=== PATIENT | male | born 1975 | race Caucasian/White ===

== ENCOUNTER 2022-11-02 13:38 | Emergency (ER) | payer SELFPAY ==
[2022-11-02 13:40] VITALS: BP 118/77; PULSE 74; RESP 18; TEMP 36.5; O2SAT 93
--- NOTE | 2022-11-02 13:43 | DI.CT_ITS ---
Exam(s) CT THORACIC LUMBAR SPINE WO EXAM: CT THORACIC LUMBAR SPINE WO CLINICAL HISTORY: fall from 6 feet. Axial loading force TECHNIQUE: Imaging Protocol: Axial computed tomography images with coronal and sagittal reformatted images were created and reviewed. CONTRAST MATERIAL: None COMPARISON: CR XR CHEST 1V IN DI DEPT from 11/02/2022 FINDINGS: THORACIC SPINAL COLUMN: No fractures nor listhesis. Schmorl's node invagination in superior endplate of T12 noted. LUMBOSACRAL SPINAL COLUMN: There is a mild compression fracture of L1 noted with approximately 10 per cent height loss. No significant retropulsed posterior cortex. Fracture lines do not extend to the level the pedicles. Transverse processes are intact. No facet malalignment at this level. No promi nent paraspinal hematoma. No adjacent pulmonary findings in the field of view of this study. IMPRESSION: Mild 10 percent compression fracture of L1 vertebral body without fracture line extension into the pe dicles and without retropulsed posterior cortex. No facet malalignment. No obvious acute compromise of the spinal canal at this level. No other fractures evident in the thoracic and lumbar spinal columns. No significant disc space narr owing. RADIATION DOSE DELIVERED: 1,077.48mGy.cm Total DLP DATA REPOSITORY: All CT scans at this facility are submitted to the National Radiology Data Registry (NRDR) Dose Index Registry (DIR) with the [employer] ([employer]). RADIATION OPTIMIZATION: All CT scans at this facility use at least one of these dose optimization te chniques: automated exposure control; mA and/or kV adjustment per patient size (includes targeted exa ms where dose is matched to clinical indication); or iterative reconstruction.
--- NOTE | 2022-11-02 13:45 | DI.RAD_ITS ---
Exam(s) XR CHEST 1V IN DI DEPT EXAM: XR CHEST 1V IN DI DEPT CLINICAL HISTORY: fall from scaffolding 6 feet. TECHNIQUE: 2D digital imaging was performed. COMPARISON: No exams were available for comparison FINDINGS: Single AP portable view. Heart size is upper normal. The mediastinum is not widened. Lungs are clear. No infiltrates nor obvious pleural effusions. IMPRESSION: No acute pulmonary findings on this single AP portable view of the chest. DATA REPOSITORY: RADIATION DOSE DELIVERED:
--- NOTE | 2022-11-02 13:47 | ED.GENADUL_ITS ---
Discharge Plan Disposition Patient Disposition: Home Condition: Improving Discharge Details Clinical Impression: Lumbar compression fracture Primary Care Provider: Unknown,Unknown ED Provider: Carl Payne Home Meds and New Rx's Prescriptions: New lidocaine [Lidoderm] 5 % adhesive patch,medicated 1 patch topical DAILY Qty: 15 0RF Rx Instructions: leave on most painful area for up to 12 hrs cyclobenzaprine 5 mg tablet 5 mg PO QHS PRNQty: 10 0RF Discharge Instructions Instructions: Vertebral Compression Fracture (ED) Additional Instructions: Please take medications as prescribed. You can also use acetaminophen and or ibuprofen for pain. Please return to the emergency department for any worsening symptoms Medical Decision Making 46-year-old male fall from 6 foot scaffolding at a construction site, landed on his buttocks no loss of conscious. Pain to lower back. No midline cervical tenderness however patient is tender in the lumbar region without step-off or crepitus. Patient is alert and oriented GCS 15, airway intact breathing clear bilaterally, hemodynamically stable warm well perfused, no signs of deformity to extremities. Consider contusion versus compression fracture of lumbar spine versus compression fracture of thoracic spine lower suspicion for rib fractures or pulmonary contusion. No evidence of altered mental status or head injury to suggest intracranial hemorrhage or skull fracture. Lower suspicion for cervical spine injury given mechanism and examination. Trial of analgesia anti- inflammatory, CT T-spine and L-spine 15: 51 patient resting comfortably neurologically intact. Evidence of compression fracture of L1. Given home care instructions and will be given muscle relaxant and Lidoderm patch. Given strict return precautions for any worsening symptoms HPI General Date/Time Provider Initiated Documentation: 11/02/22 13:43 . HPI Narrative: 46-year-old male fall from 6 foot scaffolding at construction site landed on his buttock, no head injury no loss of conscious no neck pain. Endorsing lower back discomfort. Related Data Home Medications Medication Instructions Recorded Confirmed cyclobenzaprine 5 mg tablet 5 mg PO QHS PRN #10 tabs 11/02/22 lidocaine 5 % topical patch 1 patch topical DAILY #15 ea 11/02/22 (Lidoderm) Previous Rx's Medication Instructions Recorded cyclobenzaprine 5 mg tablet 5 mg PO QHS PRN #10 tabs 11/02/22 lidocaine 5 % topical patch 1 patch topical DAILY #15 ea 11/02/22 (Lidoderm) Allergies Allergy/AdvReac Type Severity Reaction Status Date / Time honey Allergy Unverified 11/02/22 13:40 kiwi Allergy Unverified 11/02/22 13:40 General Stated Complaint: Trauma DOMENICA: 3 Review of Systems Narrative: Review of Systems Constitutional: negative Eyes: negative ENT: negative Cardiovascular: negative Respiratory: negative Gastrointestinal: negative : negative Musculoskeletal: Back pain Skin: negative Neurologic: negative Psych: negative PFSH All Active Problems (Updated 11/02/22 @ 15:52 by Carl Payne MD) Lumbar compression fracture (Acute) Social History Smoking/Tobacco Use Status: Never Smoking risk assessment performed?: Yes Alcohol Intake: current Alcohol Intake frequency: holidays/special occasions only Drug use: Never Substance use type: does not use Exam Narrative Exam Narrative: Physical Examination General: alert, awake, cooperative, uncomfortable appearing HEENT: normocephalic, atraumatic; PERRL, EOM intact, conjunctiva normal; no nasal discharge; moist mucous membranes, oral and pharyngeal mucosa normal, tolerating secretions Neck: supple, trachea midline; in c-collar no midline spinal tenderness Chest: normal to inspection Respiratory: normal respiratory effort, speaking in full sentences, clear to auscultation, no wheezing, rales or rhonchi Cardiac: regular rate, regular rhythm, S1S2 intact, no murmurs rubs or gallops GI: abdomen soft, non-tender, non-distended; no palpable mass or hepatosplenomegaly Back: Tenderness upon palpation of lumbar spine without step-off or crepitus Skin: no lesions, rashes or trauma appreciated Neuro: AAOx3, normal speech, moving all extremities 5-5 strength upper and lower extremities, normal speech cranial nerves intact Extremities: Pelvis stable full range of motion of all extremities no deformity Psych: Appropriate mood and affect Course Vital Signs Vital signs: Vital Signs Temperature 36.5 C 11/02/22 13:40 Pulse 74 11/02/22 13:40 Respiratory Rate 18 11/02/22 13:40 Blood Pressure 118/77 11/02/22 13:40 Pulse Oximetry 93 11/02/22 13:40 Temperature 36.5 C 11/02/22 13:40 Temperature Source Oral 11/02/22 13:40 Pulse 74 11/02/22 13:40 Respiratory Rate 18 11/02/22 13:40 Respiratory Effort Normal, Non-Labored 11/02/22 13:39 Blood Pressure 118/77 11/02/22 13:40 Pulse Oximetry 93 11/02/22 13:40 Oxygen Delivery Method Room Air 11/02/22 13:40 Oxygen Flow Rate 0 11/02/22 13:40 PAWSS Have you Been Recently Intoxicated or Drunk Within the Last 30 days?: No Have you Ever Experienced Previous Episodes of Alcohol Withdrawal?: No Have you ever Experienced Withdrawal Seizures?: No Have you ever Experienced Delirium Tremens(DT)s?: No Have you ever undergone Alcohol Rehabilitation Treatment (i.e, inpt ot outpatient treatment programs)?: No Have you ever Experienced Blackouts?: No Have you ever Combined Alcohol with other Downers within the last 90 days?: No Have you ever Combined Alcohol with any other Substance of Abuse during the last 90 days?: No Positive Blood Alcohol level on Presentation? [PCS.BAL]: No Evidence of Increased Autonomic Activity (i.e. HR>120, tremor, sweating, agitation, nausea)?: No Result: 0
[2022-11-02 13:53] LABS: Abs Immature Grans 0.11 10^3/uL (0.0-0.06); Absolute Basophil Count 0.08 10^3/uL (0.0-0.2); Absolute Eosinophil Count 0.61 10^3/uL (0.0-0.7); Absolute Lymphocyte Count 1.84 10^3/uL (1.2-3.4); Absolute Neutrophil Count 5.08 10^3/uL (1.2-6.7); Eosinophils % 7.3; HGB 15.6 g/dL (13.5-17.5); Immature Grans % 1.3; Lymphocytes % 22.1; MCH 30.5 pg (27.0-33.0); MCHC 34.7 % (32.0-36.0); MCV 88 fL (80-95); MPV 8.9 fL (8.0-11.0); Monocytes % 7.2; Neutrophils % 61.1; Platelet Count 233 10^3/uL (130-400); RBC 5.12 10^6/uL (4.36-5.78); RDW 12.3 % (11.8-14.1); WBC 8.32 10^3/uL (4.4-10.8)
[2022-11-02 14:09] LABS: ALT 34 U/L (16-63); AST 29 U/L (15-37); Albumin 3.6 g/dL (3.4-5.0); Alkaline Phosphatase 80 U/L (46-116); Anion Gap 9.4 mmol/L (3-11); BUN 19 mg/dL (7-18); Bilirubin, Total 0.7 mg/dL (0.2-1.0); CO2 27.6 mmol/L (21.0-32.0); CREATININE 1.3 mg/dL (0.70-1.30); Calcium 8.6 mg/dL (8.5-10.1); Chloride 104 mmol/L (98-107); Estimated GFR 69.04 (mL/min/1.73m2); Glucose 106 mg/dL (74-106); Potassium 4.3 mmol/L (3.5-5.1); Sodium 141 mmol/L (136-145); Total Protein 6.9 g/dL (6.4-8.2)
[2022-11-02] MEDS: Dexamethasone 10 MG/ML VIAL IVP (14:10)
[2022-11-02] MEDS: Ondansetron 4 MG/2 ML VIAL IVP (14:11)
[2022-11-02] MEDS: Ketorolac 15 MG/ML VIAL IVP (14:11)
[2022-11-02 16:06] VITALS: BP 122/75; PULSE 81; RESP 18; O2SAT 96
== END 2022-11-02 16:06 | disposition home or self-care (01) ==
LOC: ER 16:28
PROVIDERS: Emergency Provider Emergency Medicine
DX: S32.019A Unspecified fracture of first lumbar vertebra, initial encounter for closed fracture (principal); W17.89XA Other fall from one level to another, initial encounter
CPT/HCPCS: 36415; 80053; 96374; 96375; 99284; 71045; 72128; 72131; 85025; J1100; J1885; J2405